=== PATIENT | male | born 1980 | race African-American/Black ===

== ENCOUNTER 2018-06-07 18:07 | Inpatient (IN) | payer OTHER ==
[~2018-06-07] VITALS: Ht 172.7 cm; Wt 136.0 kg
[~2018-06-07 18:07] MED LIST: AMLODIPINE XX; AUGMENTIN875TAB PO; CIPROFLOXACN500 MG PO; METOPROL TAR25 MG PO; ZESTRIL5 M1 PO
[2018-06-07 19:08] LABS: HEMATOCRIT 42.3 % (39.0-50.0); HEMOGLOBIN 13.9 g/dl (14.0-18.0); IMMATURE GRANULOCYTES 0.4 % (0.0-5.0); MEAN CELL VOLUME 89.4 fL CALC (80.0-100.0); MEAN CORPUSCULAR HGB 29.4 pG CALC (26.0-32.0); MEAN CORPUSCULAR HGB CONC 32.9 g/L CALC (32.0-36.0); NEUT# 8.8 thou/uL (1.82-7.42); RED BLOOD COUNT 4.73 mill/uL (4.70-6.10); RED CELL DISTRI WIDTH 11.9 % (11.5-15.5)
[2018-06-07 19:33] LABS: ALKALINE PHOSPHATASE 78 u/l (38-126); ANION GAP 15 (6-22 (CALC)); BILIRUBIN, TOTAL 0.3 mg/dL (0.0-1.4); BUN 14 mg/dL (9-20); BUN/CREATININE RATIO 15 (12-20 (CALC)); CARBON DIOXIDE 23 mmol/l (22-30); CHLORIDE 105 mmol/l (95-108); CREATININE 0.9 mg/dL (0.7-1.3); GFR > 60 ML/MIN (>=60 (CALC)); GFR FOR AFR.AMER. > 60 ML/MIN (>=60 (CALC)); SGOT/AST 27 u/l (17-59); SGPT/ALT 46 u/l (21-72); SODIUM 140 mmol/l (137-146); TOTAL PROTEIN 7.8 g/dL (6.3-8.2)
[2018-06-07 19:35] LABS: PROTHROMBIN TIME 10.6 SECONDS (9.0-12.5)
[2018-06-08 04:26] VITALS: BP 114/73
[2018-06-08 07:48] VITALS: BP 136/72
[2018-06-08 12:55] VITALS: BP 124/81
[2018-06-08 20:00] VITALS: BP 121/72
[2018-06-09] VITALS (7 sets, daily range): BP systolic 119–147; BP diastolic 74–86
[2018-06-10 05:04] LABS: IMMATURE GRANULOCYTES 0.5 % (0.0-5.0); MEAN CELL VOLUME 90.7 fL CALC (80.0-100.0); MEAN CORPUSCULAR HGB 29.5 pG CALC (26.0-32.0); MEAN CORPUSCULAR HGB CONC 32.5 g/L CALC (32.0-36.0); PLATELET COUNT 230 thou/uL (130-400); RED BLOOD COUNT 4.41 mill/uL (4.70-6.10); RED CELL DISTRI WIDTH 11.7 % (11.5-15.5)
[2018-06-10 05:07] VITALS: BP 143/88
[2018-06-10 05:15] LABS: ALBUMIN 3.5 g/dL (3.2-5.0); ALKALINE PHOSPHATASE 62 u/l (38-126); ANION GAP 14 (6-22 (CALC)); BILIRUBIN, TOTAL 0.3 mg/dL (0.0-1.4); BUN 11 mg/dL (9-20); BUN/CREATININE RATIO 11 (12-20 (CALC)); CARBON DIOXIDE 24 mmol/l (22-30); CHLORIDE 109 mmol/l (95-108); GFR > 60 ML/MIN (>=60 (CALC)); GFR FOR AFR.AMER. > 60 ML/MIN (>=60 (CALC)); POTASSIUM 4.3 mmol/l (3.5-5.1); SGOT/AST 28 u/l (17-59); SGPT/ALT 47 u/l (21-72); SODIUM 142 mmol/l (137-146); TOTAL PROTEIN 7.3 g/dL (6.3-8.2)
[2018-06-10 05:24] LABS: MANUAL DIFFERENTIAL YES
[2018-06-10 07:30] VITALS: BP 150/75
[2018-06-10 09:55] LABS: CHOLESTEROL HDL RATIO 6.6 (<4.4 (CALC))
[2018-06-10 11:05] VITALS: BP 161/84
[2018-06-10 16:00] VITALS: BP 165/76
[2018-06-10] MEDS ORDERED: DAPTOMYCIN500 MG IV (16:12)
[2018-06-10] MEDS ORDERED: PERCOCET 5/325M1 TAB PO (16:16)
== END 2018-06-10 14:05 | disposition home or self-care (01) | DRG 728 ==
LOC: ED 18:07 → ED-I 21:11 → ED 21:24 → MS2 21:25
PROVIDERS: Emergency Medicine; Nurse Practitioner Family; ADMIT Internal Medicine Nephrology; ATTEND Internal Medicine Nephrology
PROC: 0V950ZZ Drainage of Scrotum, Open Approach (ICD-10-PCS; principal; 2018-06-08)
PROC: 02HV33Z Insertion of Infusion Device into Superior Vena Cava, Percutaneous Approach (ICD-10-PCS; 2018-06-09)
PROC: B518ZZA Fluoroscopy of Superior Vena Cava, Guidance (ICD-10-PCS; 2018-06-09)
DX: N49.2 Inflammatory disorders of scrotum (principal); L02.215 Cutaneous abscess of perineum; Z68.42 Body mass index [BMI] 45.0-49.9, adult; E11.9 Type 2 diabetes mellitus without complications; F17.210 Nicotine dependence, cigarettes, uncomplicated; E66.01 Morbid (severe) obesity due to excess calories; B95.7 Other staphylococcus as the cause of diseases classified elsewhere
CPT/HCPCS: J3370

== ENCOUNTER 2018-06-14 09:41 | Outpatient (RCR) | payer OTHER ==
[2018-06-11 13:26] VITALS: BP 138/83
[2018-06-12 12:02] VITALS: BP 132/85
[2018-06-13 10:00] VITALS: BP 141/70
[~2018-06-14] VITALS: Ht 172.7 cm; Wt 136.1 kg
[~2018-06-14 09:41] MED LIST changes: +DAPTOMYCIN500 MG IV; +PERCOCET 5/325M1 TAB PO
[2018-06-14 10:30] VITALS: BP 141/92
== END 2018-06-14 11:00 | disposition home or self-care (01) ==
LOC: ICUOP 09:41
PROVIDERS: ATTEND Nurse Practitioner Family
DX: N49.2 Inflammatory disorders of scrotum (principal); L02.215 Cutaneous abscess of perineum
CPT/HCPCS: J0878

== ENCOUNTER 2018-06-20 09:52 | Outpatient (RCR) | payer OTHER ==
[2018-06-15 10:42] VITALS: BP 128/86
[2018-06-16 11:10] VITALS: BP 125/82
[2018-06-17 11:08] VITALS: BP 125/81
[2018-06-18 11:22] VITALS: BP 130/80
[2018-06-19 12:06] VITALS: BP 124/81
[2018-06-20 10:35] VITALS: BP 143/90
== END 2018-06-20 10:30 | disposition home or self-care (01) ==
LOC: ED 09:52 → INF 06-21 10:00
PROVIDERS: ATTEND Nurse Practitioner Family
DX: N49.2 Inflammatory disorders of scrotum (principal); L02.215 Cutaneous abscess of perineum
CPT/HCPCS: J0878